=== PATIENT | female | born 1990 | race African-American/Black ===

== ENCOUNTER 2018-10-20 07:19 | Emergency (ER) | payer OTHER ==
[~2018-10-20] VITALS: Ht 165.1 cm; Wt 122.5 kg
[2018-10-20 07:59] LABS: ABSOLUTE NEUTROPHILS 5.9 thou/uL (1.4-8.2); BASOPHILS 0.6 % (0.0-2.0); EOSINOPHILS 2.1 % (0.0-3.0); HEMATOCRIT 23.3 % (37.0-47.0); HEMOGLOBIN 7.6 gm/dL (12.0-15.0); LYMPHOCYTES 30.9 % (24.0-44.0); MCH 25.4 pg (26.0-34.0); MCHC 32.7 g/dL (28.0-37.0); MCV 77.8 fL (80.0-100.0); MONOCYTES 9.3 % (1.0-8.0); PLATELET COUNT 408 thou/uL (150-400); POLYS 57.1 % (36.0-66.0); RDW 15.1 % (10.5-14.5); WBC 10.4 thou/uL (4.0-11.0)
[2018-10-20 08:05] LABS: CALCIUM 8.7 mg/dL (8.5-10.1); CREATININE 0.8 mg/dL (0.6-1.0); POTASSIUM 3.3 mmol/L (3.5-5.1)
[2018-10-20 08:11] LABS: ALBUMIN 3.3 g/dL (3.4-5.0); TOTAL BILIRUBIN 0.1 mg/dL (<0.1-1.0); TOTAL PROTEIN 7.8 g/dL (6.4-8.2)
[2018-10-20 08:13] LABS: APTT 29.4 Seconds (24.5-32.8); PROTIME 9.7 Seconds (9.3-11.4)
[2018-10-20] MEDS ORDERED: IRON325 PO (08:17)
[2018-10-20] MEDS ORDERED: PROVERA10 MG PO (08:17)
[2018-10-20 08:51] VITALS: BP 135/80
== END 2018-10-20 08:53 | disposition home or self-care (01) ==
LOC: ER 07:19
PROVIDERS: Emergency Medicine
DX: N92.0 Excessive and frequent menstruation with regular cycle (principal); D64.9 Anemia, unspecified

== ENCOUNTER 2018-10-25 12:04 | Emergency (ER) | payer OTHER ==
[~2018-10-25] VITALS: Ht 167.6 cm; Wt 77.1 kg
[~2018-10-25 12:04] MED LIST: IRON325 PO; PROVERA10 MG PO
[2018-10-25 12:33] LABS: URINE BILIRUBIN NEGATIVE (Negative); URINE BLOOD 1+ (Negative); URINE CLARITY CLEAR; URINE COLOR YELLOW; URINE GLUCOSE-RANDOM* NEGATIVE (Negative); URINE KETONES NEGATIVE (Negative); URINE LEUKOCYTES-REFLEX NEGATIVE (Negative); URINE NITRITE-REFLEX NEGATIVE (Negative); URINE PROTEIN (DIPSTICK) NEGATIVE (Negative); URINE SPECIFIC GRAVITY 1.025 (1.005-1.035); URINE UROBILINOGEN 0.2 E.U./dl (0.2-1.0)
[2018-10-25 12:41] LABS: BASOPHILS 0.5 % (0.0-2.0); EOSINOPHILS 1.5 % (0.0-3.0); HEMATOCRIT 21.3 % (37.0-47.0); HEMOGLOBIN 7.2 gm/dL (12.0-15.0); LYMPHOCYTES 22.2 % (24.0-44.0); MCH 26.1 pg (26.0-34.0); MCHC 33.6 g/dL (28.0-37.0); MCV 77.5 fL (80.0-100.0); MONOCYTES 8.5 % (1.0-8.0); PLATELET COUNT 450 thou/uL (150-400); POLYS 67.3 % (36.0-66.0); RBC 2.75 mil/uL (4.20-5.00); RDW 15.3 % (10.5-14.5); WBC 10.4 thou/uL (4.0-11.0)
[2018-10-25 12:43] LABS: CASTS None Seen /LPF (None Seen); SQUAMOUS >10 Many /LPF (0-3)
[2018-10-25 12:44] LABS: MUCUS 0-3 Light strn/LPF (None Seen); URINE RBC 0-2 Rare /HPF (0-2); URINE WBC-REFLEX 0-5 Rare /HPF (0-5)
[2018-10-25 12:45] LABS: BACTERIA-REFLEX None Seen /HPF (None Seen); CRYSTALS None Seen /LPF (None Seen)
[2018-10-25 12:50] LABS: ANION GAP 8 mmol/L (7-16); BUN 10 mg/dL (7-18); CALCIUM 8.4 mg/dL (8.5-10.1); CHLORIDE 104 mmol/L (98-107); CO2 25 mmol/L (21-32); CREATININE 0.9 mg/dL (0.6-1.0); GLUCOSE 148 mg/dL (74-106); POTASSIUM 3.4 mmol/L (3.5-5.1); SODIUM 137 mmol/L (136-145)
[2018-10-25 13:00] LABS: ALBUMIN 3.1 g/dL (3.4-5.0); SGOT 13 U/L (15-37); SGPT 20 U/L (30-65); TOTAL BILIRUBIN 0.2 mg/dL (<0.1-1.0); TOTAL PROTEIN 7.6 g/dL (6.4-8.2); TROPONIN-I <0.06 ng/mL (<0.06)
[2018-10-25 13:41] LABS: APTT 30.2 Seconds (24.5-32.8); D-DIMER 0.45 ug/mLFEU (0.19-0.50); PROTIME 10.1 Seconds (9.3-11.4)
[2018-10-25 14:36] VITALS: BP 162/101
--- NOTE | 2018-10-25 16:07 | EKG ---
[address] [address] ELECTROCARDIOGRAM REPORT Name: AMANDA ARMANDO Room #: [id number] ������������������ Admission: 10/25/18 ������������������ Attend Phys: Discharge: 10/25/18 ������������������ Date of : 86 Report #: [id number] ����������������������������������������������������������������� [id number] THIS REPORT FOR: //name// [facility] ED Test Date: 2018-10-25 Test Time: 12:16:56 Pat Name: AMANDA ARMANDO Department: Room: Gender: F Manager Image: AMADOR : 1990 Requested By: Rosendo Bryant Order Number: [id number] MD: Pietro Nguyen Measurements Intervals [place] Rate: 114 P: 42 RI: 166 QRS: 35 QRSD: 62 T: -43 QT: 343 QTc: 473 Interpretive Statements Sinus tachycardia Borderline T abnormalities, diffuse leads No previous ECG available for comparison Electronically Signed On 10-25-2018 16:07:14 CDT by Pietro Nguyen [email or web address] ��������������������������������������������� <ELECTRONICALLY SIGNED> ���������������������������������������� By: Pietro Nguyen MD ��������������������������������������������� 10/25/18 1607 1216 15 Pietro Nguyen MD /BECCA
== END 2018-10-25 14:36 | disposition home or self-care (01) ==
LOC: ER 12:04
PROVIDERS: Emergency Medicine
DX: D64.9 Anemia, unspecified (principal); N92.0 Excessive and frequent menstruation with regular cycle; R07.89 Other chest pain